=== PATIENT | female | born 1965 ===

== ENCOUNTER 2023-12-11 20:25 | Emergency (ER) | payer OTHER ==
[~2023-12-11] VITALS: Ht 157.5 cm; Wt 80.3 kg
[2023-12-11] MEDS ORDERED: ondansetron HCL 4 MG/2 ML VIAL IV ONE (21:45)
[2023-12-11 21:47] LABS: BASOPHILS 0.4 % (0-2); EOSINOPHILS 0.2 % (0-6); HEMATOCRIT 44.3 % (35.0-50.0); HEMOGLOBIN 15.1 g/dL (12.0-18.0); LYMPHOCYTES 14.8 % (24-44); MCH 30.4 (27-36); MCV 89.5 fl (81-99); MONOCYTES 5.5 % (0-12); NEUTROPHILS 79.1 % (39-80); PLATELET COUNT 370 K/uL (140-440); RBC 4.96 M/ul (4.3-5.7)
[2023-12-11 22:01] LABS: BILIRUBIN, URINE POSITIVE (negative); BLOOD/HGB, URINE SMALL (Negative); KETONE, URINE SMALL (Negative); LEUK ESTERASE, URINE NEGATIVE (negative); NITRITE, URINE POSITIVE (negative)
[2023-12-11 22:06] LABS: EPITHELIAL CELLS, URINE SQUAMOUS 3+ /lpf (0-1+)
[2023-12-11 22:07] LABS: CRYSTALS, URINE NONE SEEN (0-1+)
[2023-12-11 22:08] LABS: BACTERIA, URINE 2+ /hpf (negative); CASTS, URINE NONE SEEN \\lpf; REFLEX CULTURE, URINE No (No)
[2023-12-11 22:34] LABS: ALBUMIN 3.8 g/dL (3.4-5.0); ALBUMIN/GLOBULIN RATIO 0.88 (1.1-2.4); ALKALINE PHOSPHATASE 482 U/L (46-116); ALT (SGPT) 888 U/L (14-59); ANION GAP 12.5 (7-21); AST (SGOT) 583 U/L (15-37); BILIRUBIN, TOTAL 7.2 ng/dL (0.2-1.0); BUN/CREATININE RATIO 18.18 (6.0-28.6); CALCIUM 9.4 mg/dL (8.5-10.1); CARBON DIOXIDE 31 mmol/L (21-32); CHLORIDE 98 mmol/L (98-107); CREATININE, SERUM 0.77 mg/dL (0.55-1.02); GLOMERULAR FILTRATION RATE,EST 90 mL/min (>60); POTASSIUM 3.5 mmol/L (3.5-5.1); PROTEIN, TOTAL 8.1 g/dL (6.4-8.2); UREA NITROGEN 14 mg/dL (7-18)
[2023-12-11] MEDS ORDERED: CEFTRIAXONE/SODIUM CHLORIDE 2 GM/100 ML PIGGYBACK IV ONE (23:15)
[2023-12-11] MEDS ORDERED: LACTATED RINGER'S 1,000 ML IV ONE (23:15)
[2023-12-11] MEDS ORDERED: HYDROmorphone HCL 1 MG/ML SYR IV PRN (23:15)
[2023-12-11 23:24] LABS: CHOLESTEROL/HDL RATIO 4.9
[2023-12-12] MEDS ORDERED: LACTATED RINGER'S 1,000 ML IV SCH (00:45)
[2023-12-12] MEDS ORDERED: KETOROLAC TROMETHAMINE 15 MG/ML VIAL IV ONE (01:00)
[2023-12-12 05:53] VITALS: BP 138/65
== END 2023-12-12 05:53 | disposition short-term general hospital (02) ==
LOC: ED 20:25 → EDBD 20:26 → ED 20:26
PROVIDERS: Internal Medicine
DX: K85.90 Acute pancreatitis without necrosis or infection, unspecified (principal); K83.1 Obstruction of bile duct; N39.0 Urinary tract infection, site not specified
CPT/HCPCS: 36415; 74177; 80053; 80061; 81001; 83036; 83690; 85025; J0696; J1170; J1885; J2405; J7121; Q9967; U0002